=== PATIENT | female | born 1950 | race Asian ===

== ENCOUNTER 2021-12-31 16:28 | Inpatient (IN) | payer MEDICARE, MEDICAID ==
[~2021-12-31] VITALS: Ht 152.4 cm; Wt 60.8 kg
[2021-12-31 17:09] LABS: BASOPHILS % (AUTO) 0.7 % (0.0-2.0); EOSINOPHILS % (AUTO) 3.9 % (1.0-6.0); HEMATOCRIT 37.1 % (36-46); HEMOGLOBIN 12.5 g/dL (12.0-16.0); LYMPHOCYTES # (AUTO) 1.5 K/uL (1.0-4.8); LYMPHOCYTES % (AUTO) 28.3 % (22.0-44.0); MEAN CORPUSCULAR HEMOGLOBIN 30.6 pg (26.0-34.0); MEAN CORPUSCULAR HGB CONC 33.7 G/dL (31.0-37.0); MEAN CORPUSCULAR VOLUME 91 fL (80-100); MONOCYTES # (AUTO) 0.5 K/uL (0.1-1.0); MONOCYTES % (AUTO) 9.6 % (2.0-9.0); NEUTROPHILS # (AUTO) 3.1 K/uL (1.8-7.7); NEUTROPHILS % (AUTO) 57.5 % (40.0-70.0); PLATELET COUNT (AUTO) 172 K/uL (150-450); RED BLOOD CELL COUNT(AUTO) 4.08 MIL/uL (4.00-5.20)
[2021-12-31 17:23] LABS: ANION GAP 11 mmol/L (8-16); CALCIUM, TOTAL 8.7 mg/dL (8.8-10.5); CARBON DIOXIDE 24 mmol/L (22-29); CHLORIDE 105 mmol/L (98-107); CREATININE 0.97 mg/dL (0.60-1.30); GLOMERULAR FILTR. RATE CALC 57 mL/min (>60); GLUCOSE,RANDOM 96 mg/dL (70-110); POTASSIUM 3.7 mmol/L (3.5-5.1); SODIUM SERUM 140 mmol/L (136-145); UREA NITROGEN, BLOOD 33 mg/dL (7-18)
[2021-12-31 17:29] LABS: ALANINE AMINOTRANSFERASE 44 U/L (12-78); ALBUMIN 3.5 g/dL (3.4-5.0); ALKALINE PHOSPHATASE 94 U/L (46-116); ASPARTATE AMINOTRANSFERASE 34 U/L (15-37); BILIRUBIN,TOTAL 0.3 mg/dL (0.1-1.0)
[2021-12-31] MEDS ORDERED: ZOLPIDEM TARTRATE 10 MG TABLET PO PRN (18:15)
[2021-12-31] MEDS ORDERED: HALOPERIDOL 5 MG TABLET PO PRN (18:15)
[2021-12-31] MEDS ORDERED: OLANZapine 5 MG RAPDIS TABLET PO ONE (18:30)
[2021-12-31] MEDS: LORazepam 2 MG TABLET PO PRN (18:36)
[2021-12-31] MEDS ORDERED: LORazepam 2 MG/ML VIAL IM ONE (18:45)
[2021-12-31] MEDS ORDERED: DiphenhydrAMINE HCL 50 MG/ML VIAL IM ONE (18:45)
[2021-12-31 20:44] LABS: COVID AG,FIA SOURCE NASAL SWAB
[2022-01-01 04:04] VITALS: BP 128/72
[2022-01-01] MEDS ORDERED: GuaiFENesin/D-METHORPHAN [SUGAR-FREE] 200-20MG/10 ML SYRUP UDCUP PO PRN (06:45)
[2022-01-01] MEDS ORDERED: ACETAMINOPHEN 325 MG TABLET PO PRN (06:45)
[2022-01-01] MEDS ORDERED: MAGNESIUM HYDROXIDE SUSPENSION 30 ML UDCUP PO PRN (06:45)
[2022-01-01] MEDS ORDERED: LOPERAMIDE HCL 2 MG CAPSULE PO PRN (06:45)
[2022-01-01] MEDS ORDERED: ONDANSETRON HCL 4 MG TABLET PO PRN (06:45)
[2022-01-01] MEDS ORDERED: ALBUTEROL SULFATE HFA 90 MCG/PUFF 8 GM INHALER IH PRN (06:45)
[2022-01-01] MEDS ORDERED: CloNIDine HCL 0.1 MG TABLET PO PRN (06:45)
[2022-01-01] MEDS ORDERED: NICOTINE 14 MG/24 HOUR PATCH TD PRN (06:45)
[2022-01-01] MEDS ORDERED: PETROLATUM,WHITE 28 GM JELLY TP PRN (06:45)
[2022-01-01] MEDS ORDERED: DOCUSATE SODIUM 100 MG CAPSULE PO PRN (06:45)
[2022-01-01 08:41] VITALS: BP 149/84
[2022-01-01] MEDS: ESCITALOPRAM OXALATE 10 MG TABLET PO SCH ×2 (12:30→13:26)
[2022-01-01 22:51] VITALS: BP 132/75
[2022-01-02 08:08] VITALS: BP 134/88
[2022-01-02] MEDS: ESCITALOPRAM OXALATE 10 MG TABLET PO SCH (08:32)
[2022-01-02] MEDS: LORazepam 2 MG TABLET PO PRN (08:35)
[2022-01-02 20:30] VITALS: BP 108/70
[2022-01-03] MEDS: ESCITALOPRAM OXALATE 10 MG TABLET PO SCH (08:29)
[2022-01-03 09:22] VITALS: BP 118/68
[2022-01-03] MEDS: IBUPROFEN 400 MG TABLET PO PRN (13:11)
[2022-01-03] MEDS: MAG HYDROX/AL HYDROX/SIMETH ES 30 ML SUSPENSION UDCUP PO PRN (14:15)
[2022-01-03 20:43] VITALS: BP 121/74
[2022-01-04 08:30] VITALS: BP 111/82
[2022-01-04] MEDS: LORazepam 2 MG TABLET PO PRN (08:53)
[2022-01-04] MEDS: ESCITALOPRAM OXALATE 10 MG TABLET PO SCH (08:53)
[2022-01-04] MEDS: MAG HYDROX/AL HYDROX/SIMETH ES 30 ML SUSPENSION UDCUP PO PRN (10:11)
[2022-01-04] MEDS: IBUPROFEN 400 MG TABLET PO PRN (10:21)
[2022-01-04 20:14] VITALS: BP 130/72
[2022-01-05] MEDS: ESCITALOPRAM OXALATE 10 MG TABLET PO SCH (08:14)
[2022-01-05 08:33] VITALS: BP 137/87
[2022-01-05 09:01] LABS: GLUCOMETER DEV NAME(LOC) POC.BV
[2022-01-05] MEDS: MAG HYDROX/AL HYDROX/SIMETH ES 30 ML SUSPENSION UDCUP PO PRN (10:07)
[2022-01-05 20:58] VITALS: BP 149/88
[2022-01-06] MEDS: ESCITALOPRAM OXALATE 10 MG TABLET PO SCH (08:29)
[2022-01-06] MEDS: LORazepam 2 MG TABLET PO PRN (08:30)
[2022-01-06 08:34] VITALS: BP 145/77
[2022-01-06] MEDS ORDERED: ESCI10 PO (12:14)
== END 2022-01-06 15:10 | disposition home or self-care (01) | DRG 885 ==
LOC: EMS 16:34 → B3A 18:49 → B2S 01-01 18:05
PROVIDERS: ADMIT Psychiatry & Neurology Psychiatry; ATTEND Psychiatry & Neurology Psychiatry
DX: F25.1 Schizoaffective disorder, depressive type (principal); R45.851 Suicidal ideations; F41.9 Anxiety disorder, unspecified; G89.29 Other chronic pain; M19.90 Unspecified osteoarthritis, unspecified site; M54.9 Dorsalgia, unspecified; M47.9 Spondylosis, unspecified; Z79.899 Other long term (current) drug therapy; Z91.51 Personal history of suicidal behavior; Z20.822 Contact with and (suspected) exposure to COVID-19
CPT/HCPCS: 80053; 85025; 99285; G0480; J1200; J2060